=== PATIENT | male | born 1945 | race Caucasian/White ===

== ENCOUNTER 2017-03-26 15:03 | Emergency (ER) | payer MEDICARE ==
[2017-03-26] MEDS ORDERED: METHOCARBAMOL 500 MG TABLET PO STA (16:53)
[2017-03-26] MEDS ORDERED: HYDROcod/ACETAM 5/325 MG TABLET PO STA (16:53)
[2017-03-26] MEDS ORDERED: BUPIVACAINE 0.5% PF 30 ML VIAL SUBQ STA (16:54)
[2017-03-26] MEDS ORDERED: HYDROcod/ACETAM 5/325 MG TABLET ONE (17:15)
[2017-03-26] MEDS ORDERED: METHOCARBAMOL 500 MG TABLET PO ONE (17:16)
[2017-03-26] MEDS ORDERED: HYDROcod/ACET 5/325 Prepack 6 PO ONE ×2 (17:21→17:42)
--- NOTE | 2017-03-26 17:28 | XRAY Report ---
EXAM: CERVICAL SPINE RADIOGRAPHY EXAM DATE: 03/26/2017 05:10 PM. CLINICAL HISTORY: Neck strain/pain. COMPARISONS: None. TECHNIQUE: 4 views. FINDINGS: Alignment: Mild reversal of the normal cervical curvature. Grade 1 anterolisthesis of C3 on C4. Bones: The cervical vertebral bodies and posterior elements are well visualized from the skull base t hrough C7-T1. No fractures or bone lesions. Disks: Multilevel degenerative changes in the cervical spine, with osteophyte formation and intervert ebral disk space narrowing worse from C5-C7. Facets: Facet arthropathy. Soft Tissues: Normal. No prevertebral soft tissue swelling. The visualized lung apices are clear. IMPRESSION: 1. No acute fracture or dislocation seen in the cervical spine. In trauma involving the cervical spin e, negative radiographs do not completely exclude injury. If there are persistent clinical symptoms, or if there is high clinical suspicion for a cervical spine injury, additional evaluation with cross sectional imaging may be obtained as clinically indicated. 2. Multilevel degenerative changes, worst from C5-C7. [facility] Referring Provider Line: [phone] SITE ID: [id number]
[2017-03-26] MEDS ORDERED: BUPIVACAINE 0.5% PF 30 ML VIAL ONE (17:29)
[2017-03-26 17:53] VITALS: BP 134/81
--- NOTE | 2017-03-26 17:53 | ED Physician Documentation ---
PD HPI NECK PAIN - Stated complaint Stated Complaint: NECK PX - Chief complaint Chief Complaint: Back Pain - History obtained from History obtained from: Patient - History of Present Illness Timing - onset: How many days ago (2) Timing - duration: Days (2) Timing - details: Gradual onset (he was working out with weights and some dumbell raises, while lying on bench, but was a shorter bench (regular one being used) so his head was unsupported. He felt some use of the neck muscles but no abrupt onset of pain. He graudally felt more sore in neck later and into evening, with worsening and stiffness yesterday and today. No visual changes, dizziness, ataxia, trouble speaking. No focal weakness. No pain to arms/fingers and no numbness in arms/fingers. Pain with ROM of the neck.), Still present, Waxing and waning Location: Upper, Mid, Right, Left Quality: Pain, Spasm Associated symptoms: No: Fever, Weakness, Numbness Worsened by: Movement Similar symptoms before: Has not had sx before Recently seen: Not recently seen Review of Systems Constitutional: denies: Fever, Chills Eyes: denies: Loss of vision, Decreased vision Musculoskeletal: reports: Neck pain. denies: Back pain Neurologic: denies: Focal weakness, Numbness, Confused, Altered mental status PD PAST MEDICAL HISTORY - Past Medical History Cardiovascular: Pulmonary embolism Neuro: None Endocrine/Autoimmune: None HEENT: Chronic hearing loss - Past Surgical History Past Surgical History: Yes Ortho: Shoulder arthroplasty - Present Medications Home Medications: Ambulatory Orders Medication Instructions Recorded Confirmed Warfarin Sodium [Coumadin] 7.5 mg PO DAILY 03/13/16 03/26/17 HYDROcod/ACETAM 5/325 [[place] 5/325] 1 tab PO Q6H PRN #15 tablet 03/26/17 Methocarbamol [Robaxin] 500 mg PO Q6H PRN #25 tablet 03/26/17 - Allergies Allergies/Adverse Reactions: Allergies Allergy/AdvReac Type Severity Reaction Status Date / Time Penicillins Allergy Unknown Verified 03/26/17 15:41 - Social History Does the pt smoke?: No Smoking Status: Never smoker - Immunizations Immunizations are current?: Yes PD ED PE NORMAL - Vitals Vital signs reviewed: Yes - General General: Alert and oriented X 3, Well developed/nourished, Other (appears uncomfortable with guarding motion of the neck) - Neck Neck: No bony TTP (but is tender at trapezius and longissimus muscles sides of neck and at isnertion at occiputal ridge. No rash nor sores seen. ), No adenopathy - Cardiac Cardiac: RRR, No murmur - Respiratory Respiratory: Clear bilaterally - Derm Derm: Normal color, Warm and dry, No rash - Extremities Extremities: No tenderness to palpate, Normal ROM s pain - Neuro Neuro: Alert and oriented X 3, logistics loss prevention manager 2-12 intact, No motor deficit, No sensory deficit, Normal speech, Other Results - Vitals Vitals: Vital Signs - 24 hr 03/26/17 03/26/17 15:38 17:52 Temperature 37 C 38.0 C H Heart Rate 68 64 Respiratory 14 18 Rate Blood Pressure 139/80 H 134/81 H O2 Saturation 100 97 Oxygen O2 Source Room air - Labs Labs: Laboratory Tests 03/26/17 17:35 Whole Blood INR 2.9 H - Rads (name of study) cervical xpine xray Radiology: Prelim report reviewed (arthritic changes, no acute process) PD MEDICAL DECISION MAKING - ED course Complexity details: reviewed results (xray with some arthritic changes. No else acute. ), considered differential (seems muscle strain. No focal neuro symptoms. Gradual onset with muscle stiffness not c/w vascular process. Trigger point injections at trapezius insertions helped some (using Marcaine). ), d/w patient Departure - Departure Disposition: 01 Home, Self Care Clinical Impression: Neck pain Cervical strain, acute Qualifiers: Encounter type: initial encounter Qualified Code(s): S16.1XXA - Strain of muscle, fascia and tendon at neck level, initial encounter Condition: Stable Record reviewed to determine appropriate education?: Yes Instructions: ED Sprain Strain Neck Follow-Up: Ritesh Knutson MD [Primary Care Provider] - Prescriptions: HYDROcod/ACETAM 5/325 [[place] 5/325] 1 tab PO Q6H PRN #15 tablet PRN Reason: Pain Methocarbamol [Robaxin] 500 mg PO Q6H PRN #25 tablet PRN Reason: Spasms Comments: Heat and gentle stretching for the neck to reduce stiffness and spasms. Tylenol 650 mg every 4 hours if needed for pain or alternatively hydrocodone every 4 hours if needed for pain. Robaxin muscle relaxant 4 times a day for stiffness and spasms. Physical treatment such as massage is okay. Recheck if not improving over the next several days though this may take a week or so to fully resolve. Discharge Date/Time: 03/26/17 18:02
== END 2017-03-26 18:02 | disposition home or self-care (01) ==
LOC: ED 15:03
DX: S16.1XXA Strain of muscle, fascia and tendon at neck level, initial encounter (principal); X50.0XXA Overexertion from strenuous movement or load, initial encounter; Y93.B9 Activity, other involving muscle strengthening exercises; Z79.01 Long term (current) use of anticoagulants; Z86.711 Personal history of pulmonary embolism
CPT/HCPCS: 72040; 85610; 96372; 99283; A9270

== ENCOUNTER 2018-11-14 14:08 | Outpatient (CLI) | payer MEDICARE ==
--- NOTE | 2018-11-14 15:31 | Ultrasound Report ---
Reason: PAIN IN LEFT CALF Procedure Date: 11/14/2018 Accession Number: [id number] / [id number] Procedure: US - Duplex Ext Veins Bilateral CPT Code: FULL RESULT: EXAM: BILATERAL LOWER EXTREMITY VENOUS ULTRASOUND EXAM DATE: 11/14/2018 03:10 PM. CLINICAL HISTORY: Pain in left calf. COMPARISON: None. TECHNIQUE: Real-time sonographic vascular imaging was performed by the floral department specialist through the lower extremities utilizing both color-flow and Doppler spectral analysis. Multiple freight representative static images were saved for review. FINDINGS: Right: Common Femoral Vein (CFV): Normal. CFV-GSV Junction: Normal. Profunda Femoral Vein (PFV): Normal. Femoral Vein (FV) Prox: Normal. Femoral Vein (FV) Mid: Normal. Femoral Vein (FV) Dist: Normal. Popliteal Vein: Normal. Posterior Tibial Veins: Normal. Peroneal Veins: Normal. Left: Common Femoral Vein (CFV): Normal. CFV-GSV Junction: Normal. Profunda Femoral Vein (PFV): Normal. Femoral Vein (FV) Prox: Normal. Femoral Vein (FV) Mid: Normal. Femoral Vein (FV) Dist: Normal. Popliteal Vein: Normal. Posterior Tibial Veins: Normal. Peroneal Veins: Normal. Other: None. IMPRESSION: No evidence for deep venous thrombosis bilaterally. [facility]
== END 2018-11-14 14:09 | disposition home or self-care (01) ==
LOC: DI 14:08
PROVIDERS: ATTEND Nurse Practitioner Family
DX: M79.662 Pain in left lower leg (principal)
CPT/HCPCS: 93970

== ENCOUNTER 2020-01-17 12:11 | Outpatient (CLI) | payer MEDICARE ==
--- NOTE | 2020-01-17 13:28 | XRAY Report ---
Reason: PAIN IN RT KNEE Procedure Date: 01/17/2020 Accession Number: [id number] / [id number] Procedure: XR - Knee 3 View RT CPT Code: Final Report FULL RESULT: PROCEDURE: Knee 3 View RT INDICATIONS: PAIN IN RT KNEE TECHNIQUE: 3 views of the right knee(s) were acquired. COMPARISON: None. FINDINGS: Bones: No fractures or dislocations. No suspicious bony lesions. There is moderate to severe medial and moderate patellofemoral compartment changes. Soft tissues: Mild joint effusion. No suspicious soft tissue calcifications. IMPRESSION: Mild effusion with degenerative change. No visualized acute fracture or dislocation. However, occult injury cannot be excluded. Recommend short interval imaging follow-up in 7-10 days as clinically indicated for additional evaluation. Reviewed by: Binta Nova MD on 01/17/2020 1:27 PM PDT Approved by: Binta Nova MD on 01/17/2020 1:27 PM PDT Station ID: [id number]
== END 2020-01-17 12:12 | disposition home or self-care (01) ==
LOC: DI 12:11
PROVIDERS: ATTEND Nurse Practitioner Family
DX: M17.11 Unilateral primary osteoarthritis, right knee (principal)

== ENCOUNTER 2020-02-27 10:16 | Outpatient (CLI) | payer MEDICARE ==
--- NOTE | 2020-02-27 10:38 | XRAY Report ---
PROCEDURE: Chest 2 View X-Ray INDICATIONS: ENCOUNTER FOR OTHER PREPROCEDURAL EXAMINATION TECHNIQUE: 2 view(s) of the chest. COMPARISON: None. FINDINGS: Surgical changes and devices: None. Lungs and pleura: No pleural effusions or pneumothorax. Lungs are clear. Mediastinum: Mediastinal contours are normal. Heart size is normal. Bones and chest wall: No suspicious bony abnormalities. Soft tissues appear unremarkable. IMPRESSION: No acute cardiopulmonary process demonstrated radiographically. Reviewed by: Heri Lui MD on 02/27/2020 10:36 AM PDT Approved by: Heri Lui MD on 02/27/2020 10:36 AM PDT Station ID: [id number]
== END 2020-02-27 10:17 | disposition home or self-care (01) ==
LOC: DI.S 10:16
PROVIDERS: ATTEND Nurse Practitioner Family
DX: Z01.818 Encounter for other preprocedural examination (principal)
CPT/HCPCS: 71046

== ENCOUNTER 2020-03-30 08:00 | Outpatient (CLI) | payer MEDICARE ==
[2020-03-30 15:22] LABS: PT - PROTHROMBIN TIME 21.9 secs (9.9-12.6)
== END 2020-03-30 23:59 | disposition home or self-care (01) ==
LOC: LAB.R 08:00
PROVIDERS: ATTEND Orthopaedic Surgery Adult Reconstructive Orthopaedic Surgery
DX: R79.1 Abnormal coagulation profile (principal)
CPT/HCPCS: 85610

== ENCOUNTER 2021-03-04 08:00 | Outpatient (CLI) | payer MEDICARE ==
--- NOTE | 2021-03-04 16:44 | XRAY Report ---
PROCEDURE: Wrist 3 View LT INDICATIONS: SPRAIN OF CARPAL JOINT OF LEFT WRIST TECHNIQUE: 3 views of the wrist were acquired. COMPARISON: None FINDINGS: Bones: No fractures or dislocations. No suspicious bony lesions. Mild triscaphe joint degenerative change. Soft tissues: No suspicious soft tissue calcifications. IMPRESSION: Mild triscaphe joint degenerative change. No evidence acute bony abnormality of the left wrist. If clinical suspicion and/or symptoms persist, further assessment with repeat plain films or advanced imaging (e.g., CT, MRI, or bone scan) may be helpful for further assessment. Reviewed by: Stan Rm MD on 03/04/2021 4:43 PM PDT Approved by: Stan Rm MD on 03/04/2021 4:43 PM PDT Station ID: [id number]
== END 2021-03-04 23:59 | disposition home or self-care (01) ==
LOC: DI.S 08:00
PROVIDERS: ATTEND Emergency Medicine
DX: M19.032 Primary osteoarthritis, left wrist (principal)

== ENCOUNTER 2021-06-05 11:31 | Emergency (ER) | payer MEDICARE ==
[2021-06-05 11:42] VITALS: BP 147/83
--- NOTE | 2021-06-05 12:01 | ED Physician Documentation ---
PD HPI URI - Stated complaint Stated Complaint: SORE THROAT/COUGH/CONGESTION - Chief complaint Chief Complaint: Heent - Additional information Additional information: This is a very pleasant 75-year-old male presents with mild sore throat and cough for the last couple of days. Is not had a fever. He does have a history of sore throat in the morning sometimes with postnasal drip and mild allergy symptoms but feels this is slightly stronger than normal. His cough is mild, sometimes productive, he does not have any dyspnea or chest pain. No GI symptoms. He was tested for Covid a couple days ago and was negative but according to the paperwork he Age, it stated that if he had symptoms he should come to the hospital. 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 He is vaccinated x3 with Pfizer, also had his flu shot this year. Review of Systems Ten Systems: 10 systems reviewed and negative Constitutional: reports: Myalgias (Mild myalgias though patient is unsure if this is not chronic arthritis.) Nose: reports: Rhinorrhea / runny nose, Congestion. denies: Sinus pressure / pain Throat: reports: Sore throat. denies: Dental pain / toothache, Oral lesions / sores, Swollen tonsils Cardiac: reports: Reviewed and negative Respiratory: reports: Reviewed and negative GI: reports: Reviewed and negative PD PAST MEDICAL HISTORY - Past Medical History Past Medical History: Yes Cardiovascular: Deep vein thrombosis, Pulmonary embolism Respiratory: Sleep apnea Neuro: None Endocrine/Autoimmune: None GI: None : None HEENT: Chronic hearing loss Psych: None Musculoskeletal: None Derm: None - Past Surgical History Past Surgical History: Yes Ortho: Knee replacement, Shoulder arthroplasty - Present Medications Home Medications: Ambulatory Orders Medication Instructions Recorded Confirmed Loratadine [Claritin] 10 mg PO DAILY PRN 06/05/21 06/05/21 Rivaroxaban [Xarelto] 10 mg ORAL DAILY 06/05/21 06/05/21 - Allergies Allergies/Adverse Reactions: Allergies Allergy/AdvReac Type Severity Reaction Status Date / Time Penicillins Allergy Unknown Verified 06/05/21 11:38 - Social History Does the pt smoke?: No Smoking Status: Never smoker Does the pt drink ETOH?: Yes Does the pt have substance abuse?: Yes Substance Use and Type: CBD oil / Products - Immunizations Immunizations are current?: Yes PD ED PE NORMAL - Vitals Vital signs reviewed: Yes - General General: Alert and oriented X 3, No acute distress, Well developed/nourished - HEENT HEENT: Atraumatic, PERRL, EOMI, Ears normal, Moist mucous membranes, Other (Mild redness of pharynx, no tonsillar swelling or exudate, uvula midline, no trismus) - Neck Neck: Supple, no meningeal sign, No bony TTP, No adenopathy, No JVD - Cardiac Cardiac: RRR, No murmur - Respiratory Respiratory: No respiratory distress, Clear bilaterally - Derm Derm: Normal color, Warm and dry - Neuro Neuro: Alert and oriented X 3 Eye Opening: Spontaneous Motor: Obeys Commands Verbal: Oriented GCS Score: 15 Results - Vitals Vitals: Vital Signs - 24 hr 06/05/21 11:38 Temperature 36.7 C Heart Rate 67 Respiratory 18 Rate Blood Pressure 147/83 H O2 Saturation 98 Oxygen O2 Source Room air PD MEDICAL DECISION MAKING - ED course Complexity details: considered differential, d/w patient ED course: Presents with symptoms of a viral URI. He is well-appearing with stable vital signs, afebrile. He has tested negative for Covid as an outpatient but would like an additional test due to concerns about patient exposure given his role as a dentist. I think this is reasonable and a respiratory PCR panel was ordered. We discharge patient with supportive measures and return precautions regarding viral URI symptoms, will notify patient of PCR results. Departure - Departure Disposition: 01 Home, Self Care Clinical Impression: Viral syndrome Condition: Good Instructions: ED Viral Syndrome Comments: Your symptoms are consistent with a viral syndrome such as the common cold. We did test you for Covid again however given your role as a dentist and your close contact with patients. I will notify you of results. Continue supportive measures including tylenol, over the counter cough/cold medication, oral fluids. Return if you develop worsening symptoms including shortness of breath, chest pain, fever.
[2021-06-05 13:13] LABS: B. PARAPERTUSSIS- RESP PCR PAN NOT DETECTED; B. PERTUSSIS- RESP PCR PANEL NOT DETECTED; C. PNEUMONIAE- RESP PCR PANEL NOT DETECTED; CORONAVIRUS 229E-RESP PCR NOT DETECTED; CORONAVIRUS HKU1-RESP PCR NOT DETECTED; CORONAVIRUS NL63-RESP PCR NOT DETECTED; CORONAVIRUS OC43-RESP PCR NOT DETECTED; HUMAN METAPNEUMOVIRUS NOT DETECTED; INFLUENZA A- RESP PCR PANEL NOT DETECTED; INFLUENZA B - RESP PCR PANEL NOT DETECTED; M. PNEUMONIAE- RESP PCR PANEL NOT DETECTED; PARAINFLUENZA VIRUS 1 NOT DETECTED; PARAINFLUENZA VIRUS 2 NOT DETECTED; PARAINFLUENZA VIRUS 3 NOT DETECTED; PARAINFLUENZA VIRUS 4 DETECTED; RHINOVIRUS/ENTEROVIRUS NOT DETECTED; RSV- RESP PCR PANEL NOT DETECTED; SARS-CoV-2 -RESP PCR PANEL NOT DETECTED
== END 2021-06-05 12:11 | disposition home or self-care (01) ==
LOC: ED 11:31
DX: B34.9 Viral infection, unspecified (principal); Z20.822 Contact with and (suspected) exposure to COVID-19
CPT/HCPCS: 0202U; 99282; 99283

== ENCOUNTER 2022-04-28 12:41 | Outpatient (CLI) | payer MEDICARE ==
--- NOTE | 2022-04-28 14:18 | DEXA Report ---
PROCEDURE: Dexa Spine and/or Hip INDICATIONS: OSTEOPOROSIS TECHNIQUE: Dual energy x-ray absorptiometry (DXA) was performed on a CPM Braxis System. Regions measur ed are the AP Spine, femoral neck, and if needed forearm. COMPARISON: 04/15/2020. FINDINGS: Lumbar Spine: Bone Mineral Density 0.952 g/cm/cm,T score -2.2, statistically unchanged Left Hip: Bone Mineral Density 0.786 g/cm/cm,T score -2.2, statistically unchanged Left Femoral Neck: Bone Mineral Density 0.741 g/cm/cm, T score -2.5. (T score greater or equal to -1.0: NORMAL) (T score from -1.1 to -2.4: OSTEOPENIA) (T score less than or equal to -2.5 to: OSTEOPOROSIS) Impression: 1. Osteoporosis. 2. No significant interval change in bone mineral density of the lumbar spine or total hip compared t o the previous study. Patients with diagnosis of osteoporosis or osteopenia should have regular bone mineral density assess ment. For those eligible for Medicare, routine testing is allowed once every 2 years. Testing frequ ency can be increased for patients who have rapidly progressing disease or for those who are receivin g medical therapy to restore bone mass. Reviewed by: Stan Rm MD on 04/28/2022 2:17 PM PDT Approved by: Stan Rm MD on 04/28/2022 2:17 PM PDT Station ID: [id number]
== END 2022-04-28 12:42 | disposition home or self-care (01) ==
LOC: DI 12:41
PROVIDERS: ATTEND Internal Medicine
DX: M81.0 Age-related osteoporosis without current pathological fracture (principal)

== ENCOUNTER 2023-05-24 08:00 | Outpatient (CLI) | payer MEDICARE ==
[2023-05-24 14:20] LABS: BILIRUBIN,URINE NEGATIVE (NEGATIVE); GLUCOSE, URINE (UA) NEGATIVE (NEGATIVE); KETONES,URINE (UA) NEGATIVE (NEGATIVE); LEUKOCYTE ESTERASE, URINE NEGATIVE (NEGATIVE); NITRITE,URINE NEGATIVE (NEGATIVE); OCCULT BLOOD,URINE NEGATIVE (NEGATIVE); PROTEIN,URINE NEGATIVE (NEGATIVE); UROBILINOGEN,URINE 0.2 (NORMAL) E.U./dL (NORMAL)
[2023-05-24 14:24] LABS: CLARITY,URINE CLEAR (CLEAR)
== END 2023-05-24 23:59 | disposition home or self-care (01) ==
LOC: LAB.R 08:00
PROVIDERS: ATTEND Physician Assistant
DX: N39.9 Disorder of urinary system, unspecified (principal)
CPT/HCPCS: 81001; 81003; 87086

== ENCOUNTER 2024-03-29 07:00 | Outpatient (CLI) | payer MEDICARE ==
--- NOTE | 2024-04-01 12:05 | XRAY Report ---
PROCEDURE: Chest 2V INDICATIONS: COUGH/COVID+ TECHNIQUE: 2 views of the chest were acquired. COMPARISON: 02/27/2020 FINDINGS: Surgical changes and devices: None. Lungs and pleura: No pleural effusions or pneumothorax. Lungs are clear. Mediastinum: Mediastinal contours appear normal. Heart size is normal. Bones and chest wall: No suspicious bony lesions. Overlying soft tissues appear unremarkable. IMPRESSION: No acute cardiopulmonary process. Reviewed by: Juan Mcintosh MD on 04/01/2024 12:04 PM PDT Approved by: Juan Mcintosh MD on 04/01/2024 12:04 PM PDT Station ID: [id number]
== END 2024-03-29 23:59 | disposition home or self-care (01) ==
LOC: DI.S 07:00
PROVIDERS: ATTEND Emergency Medicine
DX: U07.1 COVID-19 (principal)